=== PATIENT | female | born 1940 | race Caucasian/White ===

== ENCOUNTER → 2023-10-01 13:02 | Outpatient (REF) | payer MEDICARE, SELFPAY ==
--- NOTE | 2023-10-01 13:09 | CA_ITS ---
Transthoracic Echocardiogram Patient (Last, First, Middle): Brittany Leone, Gender: Female Date of : 1940 Age: 83 Procedure Date: 10/01/2023 Procedure Type: Transthoracic Echocardiogram Location: OP Height: 152.4 cm Weight: 44. kg BSA: 1.37 m2 Heart Rate: bpm BP: 115 / 61 mmHg Building Equipment Operator: HOLLEY Referring MD: Marko Lee MD Symptoms: On [place], to determine ejection fraction Study Quality: Fair ECG Rhythm: Sinus Conclusions: - The left ventricular systolic function is normal. The calculated ejection fraction is 68% by biplane method. - There is moderate calcification of the aortic valve. - There is mild mitral annular calcification. Findings Left Ventricle Normal left ventricular cavity size. There is mildly increased left ventricular wall thickness. The left ventricular systolic function is normal. The calculated ejection fraction is 68% by biplane method. There is no evidence of regional wall motion abnormalities. Evidence suggests grade I (mild) diastolic dysfunction. LV peak GLS -19.2%. Right Ventricle Normal right ventricular cavity size and systolic function. Atria Both atria are normal in size. Aortic Valve There is a normal trileaflet aortic valve. There is moderate calcification of the aortic valve. There is no aortic valve stenosis. There is no aortic valve regurgitation. Mitral Valve The mitral valve appears normal. There is mild mitral annular calcification. There is no mitral valve regurgitation. There is no mitral valve stenosis. Pulmonic Valve The pulmonic valve is likely normal. Tricuspid Valve Normal tricuspid valve structure. There is mild tricuspid valve regurgitation. There is no evidence of pulmonary hypertension. Great Vessels The asc aorta is normal in size. Small plaque is seen in the sinuses of Valsalva. Venous The inferior vena cava is normal in size and collapses greater than 50% with inspiration. Pericardium/Pleural There is no evidence of pericardial effusion. Prior Study Comparison No prior study available for comparison. Measurements 2D Linear Measurements IVSd: 1.19 0.6-0.9/0.6-1.0 cm LVIDd: 3.05 3.9-5.3/4.2-5.9 cm LVIDd Index: 2.23 2.4-3.2/2.2-3.1 cm/m2 LVIDs: 1.78 2.0-3.6 cm LVPWd: 1.18 0.7-1.1 cm LA Diam: 3.40 2.7-3.8/3.0-4.0 cm LAIDs Index: 2.48 1.5-2.3 cm/m2 LV Mass: 136.08 67-162/88-224 g LV Mass Index: 99.33 43-95/49-115 g/m2 LVOT Diam: 1.90 3.0+(-)1.3 cm 2D Systolic Function EF 4C: 63.40 >55% EF 2C: 73.10 >55% EF BiP: 68.40 >55% Mitral Valve MV Pk E: 0.78 MV PK A: 0.94 MV Decel Time: 278.00 E/A: 0.80 E'Lateral: 5.77 E'Medial: 5.66 E/E' Med: 13.70 E/E' Lat: 13.40 PHT: 81.00 MVA PHT: 2.72 Decel [place]: 2.79 Aortic Valve AoV Pk Em[place]: 1.71 AoV Mn Emory: 1.24 AoV VTI: 0.47 AoV Pk Grad: 12.00 Aov Mn Grad: 7.00 REINIER Cont.VTI: 1.72 LVOT LVOT Pk Emory: 0.89 LVOT Mn Emory: 0.64 LVOT VTI: 0.28 LVOT Pk Grad: 3.00 LVOT Mn Grad: 2.00 LVOT Diam: 1.90 LVOT Area: 2.84 Diastolic Function MV Pk E: 0.78 MV Pk A: 0.94 E/A: 0.80 E'Medial: 5.66 E/E' Med: 13.70 E' Laterial: 5.77 E/E' Lat: 13.40 Right Ventricle TAPSE (mm): 23.80 TVS' Emory: 13.10 Tricuspid Valve TR Pk Emory: 2.28 TR Pk Grad: 21.00 RA Press: 3.00 RVSP: 24.00 Great Vessels Aorta Sinus of Valsalva: 2.71 2.0-3.[address] [place]: 2.31 1.7-3.4 cm Ao Asc: 3.20 2.1-3.4 cm Updated in Other Vendor System with Status of Final Og Santoyo MD electronically signed on 10/02/2023 1:26:49 PM with status of Final
== END ==
LOC: HO.CARD 13:02
PROVIDERS: PCP Surgery; Visit Provider Internal Medicine Medical Oncology
DX: C50.919 Malignant neoplasm of unspecified site of unspecified female breast (principal); C78.7 Secondary malignant neoplasm of liver and intrahepatic bile duct
CPT/HCPCS: 93306; 93356

== ENCOUNTER → 2023-10-01 13:09 | Outpatient (BNV) | payer MEDICARE, SELFPAY | PROVIDERS: PCP Surgery; Visit Provider Internal Medicine | DX: I35.8 Other nonrheumatic aortic valve disorders (principal); I34.81 Nonrheumatic mitral (valve) annulus calcification; I36.1 Nonrheumatic tricuspid (valve) insufficiency | CPT/HCPCS: 93306; 93356 ==